=== PATIENT | male | born 1985 | race Two or more races ===

== ENCOUNTER 2019-11-28 20:40 | Emergency (ER) | payer MEDICAID ==
[~2019-11-28] VITALS: Ht 177.8 cm; Wt 77.1 kg
[2019-11-28 22:25] VITALS: BP 133/91
== END 2019-11-28 23:45 | disposition home or self-care (01) ==
LOC: ER 20:40 → EDBD 20:40 → ER 23:45
DX: S93.401A Sprain of unspecified ligament of right ankle, initial encounter (principal); S70.312A Abrasion, left thigh, initial encounter; F12.10 Cannabis abuse, uncomplicated; F15.10 Other stimulant abuse, uncomplicated; W03.XXXA Other fall on same level due to collision with another person, initial encounter; Y93.89 Activity, other specified; Y92.59 Other trade areas as the place of occurrence of the external cause; Y99.8 Other external cause status
CPT/HCPCS: 73610

== ENCOUNTER 2020-05-21 14:14 | Emergency (ER) | payer MEDICAID ==
[~2020-05-21] VITALS: Ht 177.8 cm; Wt 77.1 kg
[2020-05-21] MEDS ORDERED: SODIUM CHLORIDE 0.9% 1,000 ML IV ONE (14:20)
[2020-05-21 15:11] LABS: Urine Bacteria NONE SEEN /hpf (None Seen); Urine Blood Negative /uL (Negative); Urine Hyaline Cast FEW /lpf (0 - 2); Urine Mucus FEW (None Seen); Urine Specific Gravity 1.035 (1.001-1.035); Urine WBC 3 /hpf (0 - 3)
[2020-05-21 15:18] LABS: Basophils # (auto) 0 10 ^3/uL (0-0.2); Basophils % (auto) 0.5 % (0.0-2.0); Eosinophils # (auto) 0.1 10 ^3/uL (0-0.8); Eosinophils % (auto) 1.6 % (0.0-7.0); Hemoglobin 12.7 g/dL (13.5-17.5); Lymphocytes # (auto) 1.8 10 ^3/uL (0.4-5.4); Lymphocytes % (auto) 40.4 % (10.0-50.0); Mean Corpuscular Hemoglobin 31.5 pg (28.0-32.0); Mean Corpuscular Hgb Conc. 33.3 g/dL (32.0-36.0); Mean Corpuscular Volume 94.3 fL (80.0-100.0); Monocytes # (auto) 0.4 10 ^3/uL (0-1.3); Monocytes % (auto) 7.9 % (0.0-12.0); Neutrophils # (auto) 2.2 10 ^3/uL (1.6-8.6); Neutrophils % (auto) 49.6 % (37.0-80.0); Nucleated Red Blood Cells % 0.1 %; Platelet Count (auto) 164 10^3/uL (140-450); Red Blood Cells 4.03 10^6/uL (4.5-5.90); Red Cell Distribution Width 13.7 % (11.8-14.3); White Blood Cell 4.5 10^3/uL (4.4-10.8)
[2020-05-21 15:36] LABS: Albumin 3.1 g/dL (3.4-5.0); Anion Gap 4 (5-15); BUN/Creatinine Ratio 21.3; Blood Urea Nitrogen 23 mg/dL (7-18); Carbon Dioxide 26 mmol/L (21-32); Chloride 111 mmol/L (98-107); GFR African American 101 mL/min; GFR Non-African American 84 mL/min; Glucose 78 mg/dL (74-106); Potassium 4.4 mmol/L (3.5-5.1); Sodium 141 mmol/L (136-145)
[2020-05-21 15:38] LABS: Alanine Aminotransferase 16 U/L (16-61); Alkaline Phosphatase 68 U/L (45-117); Aspartate Aminotransferase 13 U/L (15-37); Bilirubin, Total 0.7 mg/dL (0.2-1.0); Total Protein 6.3 g/dL (6.4-8.2)
[2020-05-21 15:46] VITALS: BP 132/66
== END 2020-05-21 16:21 | disposition home or self-care (01) ==
LOC: ER 14:14 → EDBD 14:14 → ER 16:21
DX: T67.5XXA Heat exhaustion, unspecified, initial encounter (principal); I10 Essential (primary) hypertension; X58.XXXA Exposure to other specified factors, initial encounter; Y93.89 Activity, other specified; Y92.89 Other specified places as the place of occurrence of the external cause; Y99.8 Other external cause status
CPT/HCPCS: 36415; 80053; 81001; 85025; 96360; 96361

== ENCOUNTER 2021-06-17 17:34 | Emergency (ER) | payer MEDICAID ==
[~2021-06-17] VITALS: Ht 177.8 cm; Wt 72.6 kg
[2021-06-17 17:38] VITALS: BP 118/80
== END 2021-06-18 01:32 | disposition left against medical advice (07) ==
LOC: ER 17:34 → EDBD 17:34 → ER 06-18 01:32
DX: R42 Dizziness and giddiness (principal); R51.9 Headache, unspecified; E86.0 Dehydration; Z53.21 Procedure and treatment not carried out due to patient leaving prior to being seen by health care provider
CPT/HCPCS: 93005

== ENCOUNTER 2021-10-10 15:18 | Emergency (ER) | payer MEDICAID ==
[~2021-10-10] VITALS: Ht 180.3 cm; Wt 79.4 kg
[2021-10-10 15:18] VITALS: BP 110/72
[2021-10-10 15:58] LABS: Basophils # (auto) 0.2 10 ^3/uL (0-0.2); Basophils % (auto) 1.2 % (0.0-2.0); Eosinophils # (auto) 0.1 10 ^3/uL (0-0.8); Eosinophils % (auto) 0.8 % (0.0-7.0); Hematocrit 41.5 % (41.0-53.0); Hemoglobin 13.8 g/dL (13.5-17.5); Lymphocytes # (auto) 1.4 10 ^3/uL (0.4-5.4); Lymphocytes % (auto) 10.1 % (10.0-50.0); Mean Corpuscular Hemoglobin 31.1 pg (28.0-32.0); Mean Corpuscular Hgb Conc. 33.4 g/dL (32.0-36.0); Mean Corpuscular Volume 93.1 fL (80.0-100.0); Monocytes # (auto) 0.9 10 ^3/uL (0-1.3); Monocytes % (auto) 6.1 % (0.0-12.0); Neutrophils # (auto) 11.6 10 ^3/uL (1.6-8.6); Neutrophils % (auto) 81.8 % (37.0-80.0); Red Blood Cells 4.45 10^6/uL (4.5-5.90); Red Cell Distribution Width 13.3 % (11.8-14.3); White Blood Cell 14.2 10^3/uL (4.4-10.8)
[2021-10-10] MEDS ORDERED: CLINDAMYCIN 600MG IV 50 ML IV ONE (22:00)
== END 2021-10-11 03:02 | disposition left against medical advice (07) ==
LOC: EDBD → ER 15:18
DX: M79.642 Pain in left hand (principal); L08.9 Local infection of the skin and subcutaneous tissue, unspecified; I10 Essential (primary) hypertension; F17.210 Nicotine dependence, cigarettes, uncomplicated
CPT/HCPCS: 36415; 73200; 83605; 85025; 85652; 87040; J3490

== ENCOUNTER 2021-10-11 20:43 | Emergency (ER) | payer MEDICAID ==
[~2021-10-11] VITALS: Ht 180.3 cm; Wt 84.8 kg
[2021-10-11] MEDS ORDERED: PIPERACILLIN-TAZO 4.5GM 100 ML IV ONE (21:30)
[2021-10-11] MEDS ORDERED: VANCOMYCIN PER PHARMACY 0 MG IV SCH (21:30)
[2021-10-12 00:32] LABS: Basophils # (auto) 0.1 10 ^3/uL (0-0.2); Basophils % (auto) 0.6 % (0.0-2.0); Eosinophils # (auto) 0 10 ^3/uL (0-0.8); Eosinophils % (auto) 0.1 % (0.0-7.0); Hematocrit 37.8 % (41.0-53.0); Hemoglobin 12.6 g/dL (13.5-17.5); Lymphocytes # (auto) 0.5 10 ^3/uL (0.4-5.4); Lymphocytes % (auto) 2.8 % (10.0-50.0); Mean Corpuscular Hemoglobin 30.3 pg (28.0-32.0); Mean Corpuscular Hgb Conc. 33.2 g/dL (32.0-36.0); Mean Corpuscular Volume 91.2 fL (80.0-100.0); Monocytes # (auto) 1.3 10 ^3/uL (0-1.3); Monocytes % (auto) 6.5 % (0.0-12.0); Neutrophils # (auto) 17.3 10 ^3/uL (1.6-8.6); Red Blood Cells 4.14 10^6/uL (4.5-5.90); White Blood Cell 19.2 10^3/uL (4.4-10.8)
[2021-10-12] MEDS ORDERED: SODIUM CHLORIDE 0.9% 1,000 ML IV ONE (01:00)
[2021-10-12] MEDS ORDERED: HYDROcodone-ACET 5/325MG TAB PO ONE (01:00)
[2021-10-12] MEDS ORDERED: VANCOMYCIN 1GM/250ML 250 ML IV ONE (01:00)
[2021-10-12 01:23] LABS: Albumin 2.9 g/dL (3.4-5.0)
[2021-10-12 01:28] LABS: Amphetamine Screen, Urine POSITIVE (NEGATIVE); Barbiturate Scree,Urine NEGATIVE (NEGATIVE); Benzodiazephine Screen, Urine NEGATIVE (NEGATIVE); Cannabinoid Screen, Urine POSITIVE (NEGATIVE); Cocaine Screen, Urine NEGATIVE (NEGATIVE); Opiate Scree,Urine NEGATIVE (NEGATIVE); Phencyclidine Screen, Urine NEGATIVE (NEGATIVE)
[2021-10-12 01:33] VITALS: BP 130/84
[2021-10-12 01:35] LABS: BUN/Creatinine Ratio 14.3; Bilirubin, Total 0.9 mg/dL (0.2-1.0); CRP High Sensitivity 17.7 mg/dL (< 0.3); Total Protein 7.2 g/dL (6.4-8.2)
== END 2021-10-12 02:00 | disposition left against medical advice (07) ==
LOC: ER 20:45
DX: L03.114 Cellulitis of left upper limb (principal); A41.9 Sepsis, unspecified organism; D72.829 Elevated white blood cell count, unspecified; L02.512 Cutaneous abscess of left hand; I10 Essential (primary) hypertension; F17.210 Nicotine dependence, cigarettes, uncomplicated; Z59.00 Homelessness unspecified; Z20.822 Contact with and (suspected) exposure to COVID-19
CPT/HCPCS: 36415; 73120; 73200; 80053; 80307; 83605; 85025; 85652; 86141; 87040; 87426; 96365; 96366; 96367; 99291; J2543; J3370; J7030

== ENCOUNTER 2021-10-15 22:06 | Emergency (ER) | payer MEDICAID ==
[~2021-10-15] VITALS: Ht 177.8 cm; Wt 77.1 kg
[2021-10-15] MEDS ORDERED: cefTRIAXone 1GM/50ML D5W 50 ML IV ONE ×2 (23:11→23:15)
[2021-10-15 23:14] LABS: Basophils # (auto) 0.1 10 ^3/uL (0-0.2); Basophils % (auto) 1.1 % (0.0-2.0); Eosinophils # (auto) 0.1 10 ^3/uL (0-0.8); Eosinophils % (auto) 1.6 % (0.0-7.0); Hematocrit 40.7 % (41.0-53.0); Hemoglobin 13.8 g/dL (13.5-17.5); Lymphocytes # (auto) 1.7 10 ^3/uL (0.4-5.4); Lymphocytes % (auto) 21.8 % (10.0-50.0); Mean Corpuscular Hgb Conc. 33.9 g/dL (32.0-36.0); Mean Corpuscular Volume 91.3 fL (80.0-100.0); Monocytes # (auto) 0.6 10 ^3/uL (0-1.3); Monocytes % (auto) 7.8 % (0.0-12.0); Neutrophils # (auto) 5.4 10 ^3/uL (1.6-8.6); Neutrophils % (auto) 67.7 % (37.0-80.0); Nucleated Red Blood Cells % 0.2 %; Red Blood Cells 4.46 10^6/uL (4.5-5.90); Red Cell Distribution Width 13.3 % (11.8-14.3)
[2021-10-15 23:22] LABS: Albumin 3.3 g/dL (3.4-5.0); BUN/Creatinine Ratio 23.3; Calcium 9.6 mg/dL (8.5-10.1); Potassium 4.1 mmol/L (3.5-5.1)
[2021-10-15 23:25] LABS: Bilirubin, Total 0.6 mg/dL (0.2-1.0); Total Protein 8.5 g/dL (6.4-8.2)
[2021-10-15] MEDS ORDERED: AMOX500T86 PO (23:35)
[2021-10-15 23:40] VITALS: BP 140/82
== END 2021-10-15 23:44 | disposition left against medical advice (07) ==
LOC: ER 22:06 → EDBD 22:06 → EDUNIT# 22:06 → ER 23:44
DX: L03.114 Cellulitis of left upper limb (principal); I96 Gangrene, not elsewhere classified; F17.210 Nicotine dependence, cigarettes, uncomplicated; F11.10 Opioid abuse, uncomplicated; F15.10 Other stimulant abuse, uncomplicated; I10 Essential (primary) hypertension; Z59.00 Homelessness unspecified; Z53.29 Procedure and treatment not carried out because of patient's decision for other reasons
CPT/HCPCS: 36415; 73120; 80053; 83605; 85025; 96365; 99284; J0696

== ENCOUNTER 2021-11-27 09:35 | Emergency (ER) | payer MEDICAID ==
[~2021-11-27] VITALS: Ht 175.3 cm; Wt 77.1 kg
[~2021-11-27 09:35] MED LIST: AMOX500T86 PO
[2021-11-27 09:43] VITALS: BP 125/84
== END 2021-11-27 09:50 | disposition left against medical advice (07) ==
LOC: ER 09:35 → EDBD 09:35 → ER 09:50
DX: R44.0 Auditory hallucinations (principal); Z53.21 Procedure and treatment not carried out due to patient leaving prior to being seen by health care provider

== ENCOUNTER 2023-05-12 08:50 | Emergency (ER) | payer MEDICAID ==
[~2023-05-12] VITALS: Ht 172.7 cm; Wt 65.9 kg
[2023-05-12 08:59] VITALS: BP 117/70; PULSE 65; RESP 18; O2SAT 98
[2023-05-12] MEDS ORDERED: SODIUM CHLORIDE 0.9% 1,000 ML IV ONE (10:30)
== END 2023-05-12 11:33 | disposition left against medical advice (07) ==
LOC: EDBD 08:50 → ER 08:50
DX: R53.1 Weakness (principal); F17.210 Nicotine dependence, cigarettes, uncomplicated; Z59.00 Homelessness unspecified; Z79.2 Long term (current) use of antibiotics

== ENCOUNTER 2024-05-31 15:48 | Emergency (ER) | payer MEDICAID ==
[~2024-05-31] VITALS: Ht 180.3 cm; Wt 81.8 kg
[~2024-05-31 15:48] MED LIST changes: +TOB03OS OP
[2024-05-31 16:19] VITALS: BP 144/85; PULSE 68; RESP 16; TEMP 98.5; O2SAT 96
[2024-05-31] MEDS ORDERED: AMOX875T3 PO (16:51)
[2024-05-31] MEDS ORDERED: IBUP-1456 PO (16:51)
[2024-05-31] MEDS ORDERED: PRED20TA2 PO (16:51)
== END 2024-05-31 17:01 | disposition home or self-care (01) ==
LOC: EDBD 15:48 → EDUNIT# 15:48 → ER 15:48
DX: E86.0 Dehydration (principal); F17.210 Nicotine dependence, cigarettes, uncomplicated; F15.90 Other stimulant use, unspecified, uncomplicated; Z59.00 Homelessness unspecified; Z76.89 Persons encountering health services in other specified circumstances; Z79.899 Other long term (current) drug therapy

== ENCOUNTER 2024-08-06 09:11 | Emergency (ER) | payer MEDICAID ==
[~2024-08-06] VITALS: Ht 185.4 cm; Wt 90.0 kg
[~2024-08-06 09:11] MED LIST changes: +AMOX875T3 PO; +IBUP-1456 PO; +PRED20TA2 PO
[2024-08-06 09:33] VITALS: BP 126/89; PULSE 76; RESP 16; TEMP 97.8; O2SAT 99
--- NOTE | 2024-08-06 12:31 | ECG ---
[facility] Test Date: 2024-08-06 Test Time: 09:20:54 Pat Name: MARILIN TONEY Department: ER Room: Gender: M Hospital Personnel Director: KIRAN : 1985 Requested By: EMERGENCY EMERGENCY Order Number: [id number] Reading MD: Rod Gunn Measurements Intervals [place] Rate: 80 P: 65 CT: 141 QRS: 58 QRSD: 93 T: 44 QT: 380 QTc: 439 Interpretive Statements Sinus rhythm ST elev, probable normal early repol pattern Electronically Signed On 08-08-2024 17:33:58 PST by Rod Gunn Please click the below link to view image of tracing.
== END 2024-08-06 20:25 | disposition left against medical advice (07) ==
LOC: EDUNIT# 09:11 → EDBD 09:11 → ER 09:11
DX: R53.1 Weakness (principal); Z53.21 Procedure and treatment not carried out due to patient leaving prior to being seen by health care provider
CPT/HCPCS: 93005

== ENCOUNTER 2024-10-07 11:13 | Emergency (ER) | payer MEDICAID ==
[~2024-10-07] VITALS: Ht 180.3 cm; Wt 72.7 kg
--- NOTE | 2024-10-07 11:31 | ED.PDOC ---
SOB-HPI HPI Comments 39 y/o M brought in by ambulance presents to the ED with CC of SOB. Patient states, that he has been experiencing episodes of SOB xmonths; with associated symptoms of cough and diarrhea. Per EMS, patient's brother called emergency medical services and patient was found on side of road upon arrival to scene; patient is currently homeless. Patient smokes tobacco, does illicit street drugs, and consumes ETOH. Patient denies any past medical history. Patient denies chest pain, fever, chills, headache, nausea, or vomiting. No new symptoms or modifying factors at this time. Chief Complaint: Nausea/Vomiting Time Seen by MD: 11:25 Primary Care Provider: NON HOMELESS Reviewed notes: Nurses Notes, [employer]ling [employer] Manager Notes, Medications, Allergies Information Source: Patient, Emergency Med Personnel Mode of Arrival: EMS Severity: Mild Timing: Months Duration: Since onset Context: At Rest PE Risk Factors: None History of: Other Prehospital treatment: None Modifying Factors: Nothing Associated Signs and Symptoms: None Radiation: No Radiation Past Medical History PAST MEDICAL HISTORY: Denies Surgical History: Denies all surgeries Family History Family History: Reviewed,noncontributory to illness, Family hx of DM Social History Smoker: Cigarettes Alcohol: Occasionally Drugs: Cocaine, Marijuana, Methamphetamine Lives In: Homeless Constitutional: denies: chills, diaphoresis, fatigue, fever, malaise, sweats, weakness, others EENTM: denies: blurred vision, double vision, ear bleeding, ear discharge, ear drainage, ear pain, ear ringing, eye pain, eye redness, hearing loss, mouth pain, mouth swelling, nasal discharge, nose bleeding, nose congestion, nose pain, photophobia, tearing, throat pain, throat swelling, voice changes, others Respiratory: reports: cough, shortness of breath; denies: hemoptysis, orthopnea, SOB at rest, SOB with excertion, stridor, wheezing, others Cardiovascular: denies: chest pain, dizzy spells, diaphoresis, Dyspnea on exertion, edema, irregular heart beat, left arm pain, lightheadedness, palpitations, PND, syncope, others Gastrointestinal: reports: diarrhea; denies: abdomen distended, abdominal pain, blood streaked bowels, constipated, dysphagia, difficulty swallowing, hematemesis, melena, nausea, poor appetite, poor fluid intake, rectal bleeding, rectal pain, vomiting, others Genitourinary: denies: burning, dysuria, flank pain, frequency, hematuria, incontinence, penile discharge, penile sore, pain, testicle pain, testicle swelling, urgency, others Neurological: denies: dizziness, fainting, headache, left sided numbness, left sided weakness, numbness, paresthesia, pre-existing deficit, right sided numbness, right sided weakness, seizure, speech problems, tingling, tremors, weakness, others Musculoskeletal: denies: back pain, gout, joint pain, joint swelling, muscle pain, muscle stiffness, neck pain, others Integumetry: denies: bruises, change in color, change in hair/nails, dryness, laceration, lesions, lumps, rash, wounds, others Allergic/Immunocompromised: denies: Difficulty Healing, Frequent Infections, Hives, Itching, others Hematologic/Lymphatic: denies: anemia, blood clots, easy bleeding, easy bruising, swollen glands, others Endocrine: denies: excessive hunger, excessive sweating, excessive thirst, excessive urination, flushing, intolerance to cold, intolerance to heat, unexplained weight gain, unexplained weight loss, others Psychiatric: denies: anxiety, bipolar disorder, depression, hopeless, panic disorder, schizophrenia, sleepless, suicidal, others All Other Systems: Reviewed and Negative Physical Exam General Appearance: No Apparent Distress HEENT: Normal ENT Inspection, Pharynx Normal, TMs Normal Neck: Full Range of Motion, Non-Tender, Normal, Normal Inspection Respiratory: Chest Non-Tender, Lungs Clear, No Accessory Muscle Use, No Respi ratory Distress, Normal Breath Sounds Cardiovascular: No Edema, No JVD, No Murmur, No Gallop, Normal Peripheral Pulses, Regular Rate/Rhythm Breast Exam: Deferred Gastrointestinal: No Organomegaly, Non Tender, No Pulsatile Mass, Normal Bowel Sounds, Soft Genitalia: Deferred Pelvic: Deferred Rectal: Deferred Extremities: No calf tenderness, Normal capillary refill, Normal inspection, Normal range of motion, Non-tender, No pedal edema Musculoskeletal : Apperance: Normal Neurologic: Alert, head inspector II-XII nml as Tested, No Motor Deficits, Normal Affect, Normal Mood, No Sensory Deficits Cerebellar Function: Normal Reflexes: Normal Skin: Dry, Normal Color, Warm Lymphatic: No Adenopathy Was a procedure done? Was a procedure done?: No Differential Dx Differential Diagnosis: Bronchitis, Respiratory Distress, Pharyngitis, URI X-Ray, Labs, Meds, VS Vital Signs Date Time Temp Pulse Resp B/P (MAP) Pulse Ox O2 Delivery O2 Flow Rate FiO2 10/07/24 11:58 98.3 100 18 112/53 (72) 98 98.3 10/07/24 11:13 97.6 83 16 134/78 (96) 100 10/07/24 11:13 Room Air* 0 21 10/07/24 11:13 97.6 83 16 134/78 (96) 100 97.6 Lab Test 10/07/24 12:20 Range/Units Influenza Type A Antigen Negative Negative Influenza Type B Antigen Negative Negative SARS-CoV-2 Antigen (Rapid) Negative NEGATIVE Current Medications Medications (Trade) Dose Ordered Sig/Saurabh Route Start Time Stop Time Status Last Admin Ondansetron HCl (Zofran Po) 4 mg ONCE ONCE PO 10/07/24 11:45 10/07/24 11:46 DC 10/07/24 11:58 CXR: FINDINGS: Lines and Tubes: None Lungs: No focal consolidation. Pleura: No effusion. No pneumothorax. Cardiomediastinal contours: Unremarkable Bones: No acute osseous abnormality. IMPRESSION: 1. No acute cardiopulmonary disease. ATED BY: JAE CRUZ MD DICTATED DATE/TIME: 10/07/24 1141 SIGNED BY: JAE CRUZ MD SIGNED DATE/TIME: 10/07/24 1141 CC: Time of 1ST Reevaluation: 11:55 Reevaluation 1ST: Unchanged Patient Education/Counseling: Diagnosis, Treatment Family Education/Counseling: No Family Present Departure 1 Departure Time of Disposition: 13:29 Impression: Primary Impression: Viral syndrome Disposition: 01 HOME / SELF CARE / HOMELESS Condition: Fair e-Prescriptions Ondansetron Odt 4MG Tab (ZOFRAN PO) 4 Mg Tb 4 MG PO Q8HP PRN for 5 Days, #15 TAB ODT TAB-DISSOLVE IN MOUTH, THEN SWALLOW Prov: CHAKA MIRANDA MD 10/07/24 Discharged With: Self Critical Care Note Critical Care Time?: No Stability Stability form required: No Heart Score Heart Score: Heart Score Response (Comments) Value History N/A 0 EKG N/A 0 Age N/A 0 Risk Factors N/A 0 Troponin N/A 0 Total 0 I personally scribed for CHAKA MIRANDA MD ([email or web address]) on 10/07/24 at 11:31. Electronically submitted by Jolene Sandy ([email or web address]). I personally scribed for CHAKA IMRANDA MD ([email or web address]) on 10/07/24 at 11:35. Electronically submitted by Jolene Sandy ([email or web address]). I personally scribed for CHAKA MIRANDA MD ([email or web address]) on 10/07/24 at 12:06. Electronically submitted by Jolene Sandy ([email or web address]). CHAKA MIRANDA MD Oct 07, 2024 11:31
--- NOTE | 2024-10-07 11:43 | DVH ---
XY CHEST TWO VIEWS ROUTINE CLINICAL HISTORY: Cough COMPARISON: None TECHNIQUE: Frontal and lateral view of the chest was obtained FINDINGS: Lines and Tubes: None Lungs: No focal consolidation. Pleura: No effusion. No pneumothorax. Cardiomediastinal contours: Unremarkable Bones: No acute osseous abnormality. IMPRESSION: 1. No acute cardiopulmonary disease.
[2024-10-07] MEDS: ONDANSETRON ODT 4 MG TAB PO ONE (11:58)
[2024-10-07 13:15] LABS: Rapid Influenza A Negative (Negative); Rapid Influenza B Negative (Negative)
[2024-10-07 13:16] LABS: COVID19 ANTIGEN SOFIA FIA NEGATIVE (NEGATIVE)
[2024-10-07] MEDS ORDERED: ZOFR4T PO (13:30)
[2024-10-07 13:48] VITALS: BP 124/63; PULSE 98; RESP 15; TEMP 98.2; O2SAT 98
== END 2024-10-07 13:45 | disposition home or self-care (01) ==
LOC: EDBD 11:13 → ER 11:13
DX: B34.9 Viral infection, unspecified (principal); F17.210 Nicotine dependence, cigarettes, uncomplicated; F12.10 Cannabis abuse, uncomplicated; F15.10 Other stimulant abuse, uncomplicated; F14.10 Cocaine abuse, uncomplicated; Z59.00 Homelessness unspecified; Z20.822 Contact with and (suspected) exposure to COVID-19
CPT/HCPCS: 36415; 71046; 87426; 87804; 99284; Q0162

== ENCOUNTER 2025-08-04 10:34 | Emergency (ER) | payer MEDICAID ==
[~2025-08-04] VITALS: Ht 180.3 cm; Wt 81.8 kg
[~2025-08-04 10:34] MED LIST changes: +ZOFR4T PO
[2025-08-04] MEDS ORDERED: BENZ100C97 PO (11:20)
[2025-08-04] MEDS ORDERED: ACET-1881 PO (11:20)
--- NOTE | 2025-08-04 11:20 | ED.PDOC ---
SOB-HPI HPI Comments see triage Chief Complaint: Cough Time Seen by MD: 10:48 Primary Care Provider: NON HOMELESS Reviewed notes: Nurses Notes, Medications, Allergies Information Source: Patient Mode of Arrival: EMS Past Medical History PAST MEDICAL HISTORY: Denies Surgical History: Denies all surgeries Family History Family History: Reviewed,noncontributory to illness, Family hx of DM Social History Smoker: Cigarettes Alcohol: Occasionally Drugs: Cocaine, Marijuana, Methamphetamine Lives In: Homeless Physical Exam General Appearance: No Apparent Distress, Normal HEENT: Normal ENT Inspection, Pharynx Normal, TMs Normal Neck: Full Range of Motion, Non-Tender, Normal, Normal Inspection Respiratory: Chest Non-Tender, Lungs Clear, No Accessory Muscle Use, No Respiratory Distress, Normal Breath Sounds Cardiovascular: No Edema, No JVD, No Murmur, No Gallop, Normal Peripheral Pulses, Regular Rate/Rhythm Breast Exam: Deferred Gastrointestinal: No Organomegaly, Non Tender, No Pulsatile Mass, Normal Bowel Sounds, Soft Genitalia: Deferred Pelvic: Deferred Rectal: Deferred Extremities: No calf tenderness, Normal capillary refill, Normal inspection, Normal range of motion, Non-tender, No pedal edema Musculoskeletal : Apperance: Normal Neurologic: Alert, vinyl hanger II-XII nml as Tested, No Motor Deficits, Normal Affect, Normal Mood, No Sensory Deficits Cerebellar Function: Normal Reflexes: Normal Skin: Dry, Normal Color, Warm Lymphatic: No Adenopathy Was a procedure done? Was a procedure done?: No Differential Dx Differential Diagnosis: URI X-Ray, Labs, Meds, VS Vital Signs Date Time Temp Pulse Resp B/P (MAP) Pulse Ox O2 Delivery O2 Flow Rate FiO2 08/04/25 11:37 98.5 78 16 138/78 (98) 97 98.5 08/04/25 11:37 78 16 98 Room Air 08/04/25 10:43 98.9 101 15 128/88 100 98.9 X-Ray, Labs, Meds, VS Comment The patient is overall well-appearing nontoxic on exam. On physical exam, respirations even and unlabored, clear to auscultation bilaterally. Oxygen stable on room air. Did not have any focal lung findings and therefore chest x-ray was not indicated during this exam Low suspicion of strep pharyngitis given physical exam findings and patient's presenting symptoms No signs of meningismus on exam Overall, the patient is well hydrated and nontoxic. Plan for symptomatic control for fever and pain as needed. The patient was able to tolerate p.o. intake in the ED. at this time, patient is safe for discharge home. The exam findings and plan discussed. We will discharge home with PCP follow up and strict return precautions. Discussed that cough can linger up to 6 weeks after viral URI Supportive care and return precautions discussed Recommended vitamin C, rest, handwashing, and symptomatic care. Expect 2-week course with possibly of cough lingering up to 6 weeks. Nonph armacological remedies for fluids has been recommended as well Time of 1ST Reevaluation: 11:09 Reevaluation 1ST: Improved Patient Education/Counseling: Diagnosis, Treatment Family Education/Counseling: Diagnosis, Treatment SEPSIS Sepsis Screen Date sepsis recognized/suspect: Aug 04, 2025 Time Sepsis recognized/suspect: 1043 Recent Procedure: No On Antibiotic Therapy: No Respiratory Rate >20: No Heart Rate >90: Yes Temp<36 C (96.8 F) or >38.3 C: No SBP <90 or MAP <65 mmHG: No New Acute Mental Status Change: No Is the patient on CPAP, BIPAP,: No Vital Signs Date Time Temp Pulse Resp B/P (MAP) Pulse Ox O2 Delivery O2 Flow Rate FiO2 08/04/25 11:37 98.5 78 16 138/78 (98) 97 98.5 08/04/25 11:37 78 16 98 Room Air 08/04/25 10:43 98.9 101 15 128/88 100 98.9 Departure 1 Departure Time of Disposition: 11:19 Impression: Primary Impression: Cough Qualified Codes: R05.1 - Acute cough Disposition: HOME / SELF CARE / HOMELESS Condition: Stable e-Prescriptions Acetaminophen (Acetaminophen) 325 Mg Tab 325 MG PO Q6HP PRN for 10 Days, #40 TAB 0 Refills Prov: LINDA MASSEY LOCKSTITCH SLEEVE MAKER 08/04/25 Benzonatate (Benzonatate) 100 Mg Cap 1 CAP PO TID for 10 Days, #30 CAP 0 Refills Prov: LINDA MASSEY LOCKSTITCH SLEEVE MAKER 08/04/25 Discharged With: Self Critical Care Note Critical Care Time?: No Stability Stability form required: No Heart Score Heart Score: Heart Score Response (Comments) Value History N/A 0 EKG N/A 0 Age N/A 0 Risk Factors N/A 0 Troponin N/A 0 Total 0 LINDA MASSEY NP Aug 04, 2025 11:20
[2025-08-04 11:37] VITALS: BP 138/78; PULSE 78; RESP 16; TEMP 98.5; O2SAT 98
== END 2025-08-04 11:39 | disposition home or self-care (01) ==
LOC: ER 10:34 → EDBD 10:34 → ER 11:39
DX: R05.9 Cough, unspecified (principal); F17.210 Nicotine dependence, cigarettes, uncomplicated; Z79.899 Other long term (current) drug therapy; Z59.00 Homelessness unspecified